=== PATIENT | male | born 1965 | race Caucasian/White ===

== ENCOUNTER 2017-03-16 11:23 | Inpatient (IN) ==
[2017-03-16] MEDS ORDERED: ZOFRAN IV PRN (12:24)
[2017-03-16] MEDS ORDERED: PROTONIX IV SCH (12:30)
[2017-03-16] MEDS ORDERED: LEVAQUIN 500 MG/D5W 500 MG/100 ML IVPB IV SCH (12:30)
[2017-03-16] MEDS ORDERED: SODIUM CHLORIDE 0.9% INJ SCH (12:30)
[2017-03-16] MEDS ORDERED: NS 1,000 ML IV SCH (12:30)
--- NOTE | 2017-03-16 13:03 | HISTORY AND PHYSICAL ---
CHIEF COMPLAINT: Right upper quadrant pain for the last 10 days. HISTORY OF PRESENT ILLNESS: This is a 51-year-old, pleasant white gentleman, who came to my office yesterday as a followup from the ER. He has a right upper quadrant pain, nausea and vomiting. He has lost 10 pounds. He had been seen by Dr. Johnson in the ER. Ultrasound was negative. CT of the abdomen and pelvis was negative. He continues to have nausea related to eating food. He had a HIDA scan done at [facility]. It showed a nonvisualization of the gallbladder even after 2 hours. Last night, he had nausea and upper abdominal pain. As a result, he has been hospitalized for acalculous cholecystitis. Dr. Quach have been consulted. He has been scheduled for gallbladder surgery. PAST MEDICAL HISTORY: 1. Type 2 diabetes. 2. Hypertension. 3. Sleep apnea. 4. Metabolic syndrome. PAST SURGICAL HISTORY: Tonsillectomy. MEDICINES: Metformin 1000 mg p.o. b.i.d. and vitamin B12 1000 mcg daily. ALLERGIES: Not known. SOCIAL HISTORY: He is . 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 No smoking. No drug abuse. No alcohol. FAMILY HISTORY: Mom is healthy at 69. Father is a 73-year-old, has had testicular cancer, Guillain-Sandia syndrome, and hypertension. HEALTH MAINTENANCE: Last prostate and PSA exam January 2017. REVIEW OF SYSTEMS: HEENT: No headache. No vision problem. No earache. No sore throat. Neck: No goiter. No lymphadenopathy. No bruit. Cardiopulmonary: No chest pain, shortness of breath, PND, orthopnea. GI: Nausea. Right upper quadrant pain. Weight loss. No altered bowel habits. No bleeding per rectum. : No history of hesitancy, frequency, dysuria or hematuria. Extremities: No swelling of legs. No joint pain. Neurologic: Exam is nonfocal. PHYSICAL EXAMINATION: VITAL SIGNS: Stable. Afebrile. BMI 29. Weight 230 pounds. HEENT: Atraumatic, normocephalic. Pupils equal, react to light. TMs are normal. Nose and throat within normal limits. NECK: Supple. No lymphadenopathy. No goiter. CHEST: Clear to auscultation. HEART: Sounds are regular. ABDOMEN: Belly is soft. Tender in the right upper quadrant area. No signs of peritonitis. No masses palpable. RECTAL: Deferred. EXTREMITIES: No peripheral edema, cyanosis, clubbing. NEUROLOGIC: No obvious focal deficits noted. INVESTIGATIONS: On 03/09/2017 at [facility], CBC is normal, PT/INR is normal, SMA 7 is normal except glucose 124. ALT is slightly high. Triglycerides 131, cholesterol 158, and cardiac enzymes were normal. Ultrasound of the abdomen is negative. Abdominal CT scan, slight thickening of the gallbladder wall. No gallstones. Nonspecific nodular density in the right middle lobe anteriorly. EKG: Normal sinus. Nothing acute. HIDA scan is abnormal. Nonvisualization of gallbladder even after 2 hours. ASSESSMENT: A 51-year-old white gentleman, admitted to the hospital with symptomatic gallbladder disease due to acalculous cholecystitis. Positive HIDA scan, very symptomatic PLAN: IV fluids, IV Zofran, IV Levaquin, IV Protonix. Consult with Dr. Quach for laparoscopic cholecystectomy this afternoon and we will reconcile home medicines postoperatively. We will follow up. cc: Jose Rmaon Gamino MD
[2017-03-16 14:41] LABS: MANUAL DIFF NEEDED? NO
[2017-03-16 14:43] LABS: BASO% 0.2 % (0.0-0.8); EOS# 0.13 X1000 (0.0-0.7); EOS% 2.5 % (0.0-10.0); HEMATOCRIT 46.6 % (42.0-52.0); HEMOGLOBIN 15.8 g/dL (14.0-18.0); LYMPH# 1.75 X1000 (1.2-3.4); LYMPH% 33.7 % (20.5-51.1); MCH 30.9 PG (27-31); MCHC 33.9 g/dL (33-37); MONO# 0.55 X1000 (0.11-0.59); MONO% 10.6 % (1.7-9.3); MPV 9.6 FL (7.4-10.4); PLT 221 X1000 (130-400); RBC 5.12 XMIL (4.7-6.1)
[2017-03-16 15:02] LABS: AGAP 12; ALBUMIN 4.1 g/dL (3.5-5.0); ALKALINE PHOSPHATASE 74 U/L (32-122); AMYLASE 28 U/L (20-200); BUN 11 mg/dL (8-22); CALCIUM 9.1 mg/dL (8.8-10.2); CHLORIDE 102 mmol/L (98-107); COSMO 276; GOT 30 U/L (10-34); GPT 56 U/L (10-44); SODIUM 138 mmol/L (136-145); TCO2 24 mmol/L (25-35); TOTAL BILIRUBIN 0.67 mg/dL (0.20-1.00); TOTAL PROTEIN 7.2 g/dL (6.3-8.3)
--- NOTE | 2017-03-16 15:32 | EKG Report ---
Test Performed on : 03/16/2017 2:59:12 PM Test Reason : cholecystitis Blood Pressure : / mmHG Vent. Rate : 074 BPM Atrial Rate : 074 BPM P-R Int : 172 ms QRS Dur : 086 ms QT Int : 372 ms P-R-T Axes : 042 -11 020 degrees QTc Int : 412 ms Normal sinus rhythm. Minimal voltage criteria for LVH, may be normal variant Borderline ECG When compared with ECG of 09-MAR-2017 10:07, No significant change was found Confirmed by Jaron Johnson MD ([id number]) on 03/16/2017 3:33:31 PM
[2017-03-16] MEDS ORDERED: TYLENOL PO ONE (16:25)
[2017-03-16] MEDS ORDERED: MARCAINE 0.25% PF/EPI 1:200,000 ONE (17:24)
[2017-03-16] MEDS ORDERED: LR 1,000 ML ONE (17:24)
[2017-03-16] MEDS ORDERED: SODIUM CHLORIDE 0.9% ONE (17:24)
[2017-03-16 18:22] LABS: URINE MICRO REVIEW NEEDED? NO; URINE SOURCE VOIDED
[2017-03-16 18:26] LABS: BILIRUBIN URINE NEGATIVE (NEGATIVE); BLOOD URINE NEGATIVE (NEGATIVE); COLOR YELLOW; GLUCOSE URINE NEGATIVE (NEGATIVE); LEUKOCYTES URINE NEGATIVE (NEGATIVE); NITRITE URINE NEGATIVE (NEGATIVE); PROTEIN URINE TRACE mg/dL (NEGATIVE); SP GRAVITY URINE 1.027; TURBIDITY URINE CLEAR (CLEAR); UROBILINOGEN URINE NORMAL (NORMAL)
[2017-03-16 18:27] LABS: UR EPITHELIAL CELLS <10 /HPF (<10); URINE BACTERIA NEGATIVE /HPF; URINE RBC <10 /HPF (<10); URINE WBC <10 /HPF (<10)
[2017-03-16] MEDS ORDERED: FENTANYL ONE (19:22)
[2017-03-16] MEDS ORDERED: NORCO-10 PO PRN (19:41)
[2017-03-16] MEDS ORDERED: TYLENOL PO PRN (19:42)
[2017-03-16] MEDS ORDERED: TYLENOL PR PRN (19:43)
[2017-03-16] MEDS ORDERED: DIPRIVAN 1% ONE (19:50)
[2017-03-16] MEDS: MORPHINE IV PRN (19:56)
[2017-03-16] MEDS: 1/2 NS 1,000 ML IV SCH (20:19)
--- NOTE | 2017-03-16 20:27 | OPERATIVE NOTE ---
PROCEDURE DATE: 03/16/2017 PREOPERATIVE DIAGNOSIS: Acute and chronic cholecystitis with a 0% HIDA scan. PROCEDURE: Laparoscopic cholecystectomy. DESCRIPTION OF PROCEDURE: The patient was brought to the operating room. After satisfactory induction of IV and endotracheal anesthesia, athrombic TEDs were placed. His abdomen was broadly prepped and draped in the appropriate manner for laparoscopy. Initially, the infraumbilical area was infiltrated with 0.25% Marcaine with epinephrine. Dissection was taken sharply down through skin and subcutaneous tissue. Fascia was tacked with 0 Surgilon and incised. Under direct visualization, a Gela trocar was placed. The abdomen was insufflated to 3.5 L of carbon dioxide. Again, after infiltration with Marcaine and epinephrine, one 10 and two 5 mm trocars were placed across the right epigastrium. The patient was repositioned, the gallbladder was seen to be involved in a dense phlegmon of omentum indicative of acute and chronic cholecystitis. The omentum was peeled down. The gallbladder was grasped and retracted superiorly. Cultures of the crank case fluid coming from the gallbladder were sent for routine studies. The hilar structures were dissected. Attempted cystic duct cholangiogram was unsuccessful secondary to the small size of the duct. The duct and artery were subsequently doubly clipped and divided and the gallbladder was dissected from the liver bed with the use of the monopolar scissors. It was subsequently freed up, placed in an EndoCatch bag and removed. Reinspection of the liver bed revealed small bleeding points that were controlled by electrocautery or Surgicel gauze. The subhepatic and subphrenic spaces were subsequently aspirated free of the small amount of bile and blood. All trocars were removed after abdominal deflation. The subumbilical incision underwent fascial closures of 0 Surgilon. All skin incisions were closed with subcuticular 4-0 Vicryl. Steri-Strips, Telfa, and OpSite were applied. The patient was awakened and extubated in the operating room and transferred to recovery. ESTIMATED BLOOD LOSS: Was about 20-30 mL. cc: MD Jose Ramon Servin MD
[2017-03-17] MEDS: MORPHINE IV PRN ×3 (02:00→04:58)
[2017-03-17 08:12] LABS: MANUAL DIFF NEEDED? NO
[2017-03-17 08:13] LABS: BASO% 0.1 % (0.0-0.8); HEMATOCRIT 44.2 % (42.0-52.0); HEMOGLOBIN 15.3 g/dL (14.0-18.0); LYMPH# 1.01 X1000 (1.2-3.4); LYMPH% 14.8 % (20.5-51.1); MCH 30.9 PG (27-31); MCHC 34.6 g/dL (33-37); MCV 89.3 FL (81-99); MONO% 5.9 % (1.7-9.3); MPV 9.3 FL (7.4-10.4); NEUT% 79.2 % (42.2-75.2); PLT 230 X1000 (130-400); RBC 4.95 XMIL (4.7-6.1)
[2017-03-17 08:31] LABS: AGAP 14; ALBUMIN 3.9 g/dL (3.5-5.0); ALKALINE PHOSPHATASE 70 U/L (32-122); BUN 9 mg/dL (8-22); CALCIUM 8.7 mg/dL (8.8-10.2); CHLORIDE 101 mmol/L (98-107); COSMO 273; GOT 40 U/L (10-34); GPT 58 U/L (10-44); POTASSIUM 4.4 mmol/L (3.5-5.1); SODIUM 136 mmol/L (136-145); TCO2 21 mmol/L (25-35); TOTAL BILIRUBIN 0.77 mg/dL (0.20-1.00); TOTAL PROTEIN 7.3 g/dL (6.3-8.3)
[2017-03-17] MEDS: 1/2 NS 1,000 ML IV SCH (09:24)
[2017-03-17 11:14] VITALS: BP 113/72
--- NOTE | 2017-03-17 15:24 | PROGRESS NOTE ---
DATE: 03/17/2017 SUBJECTIVE: Patient doing much better. He had operation last evening for laparoscopic cholecystectomy. Has done well. OBJECTIVE: Vital signs: Afebrile. Vital signs stable. CV: RRR without murmur. Lungs: CTA. Extremities: No calf tenderness, cords or edema. LABORATORIES: Show white count 6.8, hemoglobin 15.3, platelets 230,000, neutrophils 79, lymphocytes 15. CMP shows minimal elevation LFTs. CO2 21, BUN 9, creatinine 0.9. Blood sugar 146. ASSESSMENT: Postoperative day #1 status post laparoscopic cholecystectomy due to acalculous cholecystitis. PLAN: Patient is to follow up with Dr. Quach in 1 week. DISCHARGE MEDICATIONS: Metformin 1000 mg b.i.d., Zofran 4 mg p.o. t.i.d. to q.i.d. p.r.n. nausea. FOLLOWUP: With Dr. Gamino within 1-2 weeks. cc: MD Jose Ramon Temple MD
[2017-03-19] MEDS ORDERED: NEOSTIGMINE ONE (09:17)
[2017-03-19] MEDS ORDERED: ZOFRAN ONE (09:17)
[2017-03-19] MEDS ORDERED: DECADRON ONE (09:18)
[2017-03-19] MEDS ORDERED: ROBINUL ONE (09:18)
== END 2017-03-17 11:52 | disposition home or self-care (01) ==
LOC: DIRADM 11:23 → 4N 13:17
PROVIDERS: ADMIT Internal Medicine; ATTEND Internal Medicine

== ENCOUNTER 2017-03-21 10:22 | Inpatient (IN) ==
[2017-03-21] MEDS ORDERED: ZOFRAN IV ONE (10:33)
[2017-03-21] MEDS ORDERED: DILAUDID IV ONE (10:33)
[2017-03-21] MEDS ORDERED: NS 1,000 ML ONE (10:47)
[2017-03-21] MEDS ORDERED: NS 1,000 ML IV ONE (11:04)
[2017-03-21 11:10] LABS: MANUAL DIFF NEEDED? NO
[2017-03-21 11:14] LABS: BASO% 0.2 % (0.0-0.8); EOS# 0.13 X1000 (0.0-0.7); EOS% 2.3 % (0.0-10.0); HEMOGLOBIN 16.2 g/dL (14.0-18.0); LYMPH# 1.73 X1000 (1.2-3.4); LYMPH% 30.1 % (20.5-51.1); MCH 30.7 PG (27-31); MCHC 34.5 g/dL (33-37); MCV 89.2 FL (81-99); MONO# 0.49 X1000 (0.11-0.59); MONO% 8.5 % (1.7-9.3); NEUT% 58.9 % (42.2-75.2); PLT 239 X1000 (130-400); RBC 5.27 XMIL (4.7-6.1)
[2017-03-21 11:30] LABS: AGAP 14; ALBUMIN 4.2 g/dL (3.5-5.0); ALKALINE PHOSPHATASE 84 U/L (32-122); AMYLASE 26 U/L (20-200); BUN 9 mg/dL (8-22); CALCIUM 9.3 mg/dL (8.8-10.2); CHLORIDE 98 mmol/L (98-107); CK PROFILE 50 U/L (24-204); COSMO 274; GOT 32 U/L (10-34); GPT 52 U/L (10-44); POTASSIUM 4.3 mmol/L (3.5-5.1); SODIUM 136 mmol/L (136-145); TCO2 24 mmol/L (25-35); TOTAL BILIRUBIN 0.81 mg/dL (0.20-1.00); TOTAL PROTEIN 7.9 g/dL (6.3-8.3)
--- NOTE | 2017-03-21 11:38 | Diag Imaging Result Doc PS360 ---
EXAM: CT ABD/PELVIS W/ IV CONT ONLY HISTORY: s/p cholecystectomy TECHNIQUE: CT of the abdomen with intravenous contrast and dose reduction (clarity) COMMENT: There is atelectasis in both lower lobes which was not present on 03/09/2017. There is surgical packing in the gallbladder fossa status post cholecystectomy which has occurred since the previous study. There is no evidence of free fluid in the abdomen. The kidneys adrenal glands spleen and pancreas are stable in appearance. There is no evidence of bowel obstruction. Postsurgical changes are seen adjacent to the umbilicus. CT of the pelvis with intravenous contrast: There is diverticulosis in the sigmoid colon. There is no evidence of appendicitis. There is a small amount of fluid in the rectovesical pouch. This has a CT density of over 24 Hounsfield units and is probably blood. The urinary bladder is unremarkable. IMPRESSION: Postsurgical changes status post cholecystectomy. The small amount of fluid in the pelvis is probably also secondary to recent surgery. The findings were discussed with Jose Quach MD at 03/21/2017 11:00 AM. Electronically signed by Cooper Devlin 03/21/2017 11:36 AM
[2017-03-21] MEDS ORDERED: ZOFRAN PO PRN (12:49)
--- NOTE | 2017-03-21 12:55 | EKG Report ---
Test Performed on : 03/21/2017 10:57:51 AM Test Reason : epigastric pain Blood Pressure : / mmHG Vent. Rate : 082 BPM Atrial Rate : 082 BPM P-R Int : 164 ms QRS Dur : 078 ms QT Int : 346 ms P-R-T Axes : 044 -14 014 degrees QTc Int : 404 ms Normal sinus rhythm. Normal ECG When compared with ECG of 16-MAR-2017 14:59, No significant change was found Unconfirmed Result
[2017-03-21] MEDS: 1/2 NS 1,000 ML IV SCH ×2 (13:15→22:12)
[2017-03-21] MEDS: LEVAQUIN 500 MG/D5W 500 MG/100 ML IVPB IV SCH (13:16)
[2017-03-21] MEDS: DILAUDID IV PRN ×4 (13:17→22:07)
[2017-03-21] MEDS ORDERED: DULCOLAX PR SCH (14:00)
[2017-03-21] MEDS: FLEET ENEMA PR SCH ×2 (16:17→22:14)
[2017-03-21] MEDS: FLOMAX PO SCH (22:08)
[2017-03-22] MEDS: TYLENOL PO PRN ×2 (00:33→20:27)
[2017-03-22] MEDS: DILAUDID IV PRN ×8 (01:11→23:58)
[2017-03-22] MEDS: ZOFRAN IV PRN ×2 (06:07→13:50)
[2017-03-22] MEDS: 1/2 NS 1,000 ML IV SCH ×3 (06:08→23:52)
[2017-03-22] MEDS: PRILOSEC PO SCH (06:09)
[2017-03-22 06:27] LABS: MANUAL DIFF NEEDED? NO
[2017-03-22 06:40] LABS: BASO% 0.2 % (0.0-0.8); EOS# 0.09 X1000 (0.0-0.7); EOS% 1.6 % (0.0-10.0); HEMATOCRIT 42.8 % (42.0-52.0); HEMOGLOBIN 14.7 g/dL (14.0-18.0); IMM GRAN# 0.02 X1000 (0.0-0.04); IMM GRAN% 0.3 % (0.0-0.5); LYMPH# 1.67 X1000 (1.2-3.4); LYMPH% 28.8 % (20.5-51.1); MCH 31.1 PG (27-31); MCHC 34.3 g/dL (33-37); MCV 90.7 FL (81-99); MONO# 0.77 X1000 (0.11-0.59); MONO% 13.3 % (1.7-9.3); MPV 9.4 FL (7.4-10.4); NEUT% 55.8 % (42.2-75.2); PLT 229 X1000 (130-400); RBC 4.72 XMIL (4.7-6.1)
[2017-03-22 06:52] LABS: AGAP 14; ALBUMIN 3.5 g/dL (3.5-5.0); ALKALINE PHOSPHATASE 75 U/L (32-122); BUN 8 mg/dL (8-22); CALCIUM 8.7 mg/dL (8.8-10.2); CHLORIDE 98 mmol/L (98-107); COSMO 270; GOT 21 U/L (10-34); GPT 37 U/L (10-44); POTASSIUM 4.1 mmol/L (3.5-5.1); SODIUM 135 mmol/L (136-145); TCO2 23 mmol/L (25-35); TOTAL BILIRUBIN 1.21 mg/dL (0.20-1.00); TOTAL PROTEIN 7.3 g/dL (6.3-8.3)
--- NOTE | 2017-03-22 07:38 | Diag Imaging Result Doc PS360 ---
EXAM: CHEST-2 VIEWS - 03/22/2017 HISTORY: ABD PAIN TECHNIQUE: Chest two views COMPARISON: None. FINDINGS: Heart size is normal. There is elevation of the right hemidiaphragm. There is mild subsegmental atelectasis at the lung bases. The lungs otherwise appear clear. IMPRESSION: Elevation right hemidiaphragm. Mild basilar subsegmental atelectasis. Electronically signed by Uday Porras 03/22/2017 7:35 AM
[2017-03-22] MEDS ORDERED: GOLYTELY PO ONE (07:40)
--- NOTE | 2017-03-22 07:40 | Diag Imaging Result Doc PS360 ---
EXAM: ABDOMEN FLAT/UPRIGHT - 03/22/2017 HISTORY: ABD. PAIN TECHNIQUE: Supine and upright abdomen COMPARISON: None. FINDINGS: The bowel gas pattern appears nonspecific and nonobstructive. There is scattered small bowel gas visible but there is no substantial gaseous small bowel distention identified. There is some retained fecal debris in the colon. There are surgical clips at the right upper quadrant. IMPRESSION: Nonspecific bowel gas pattern. Electronically signed by Uday Porras 03/22/2017 7:37 AM
[2017-03-22] MEDS: LEVAQUIN 500 MG/D5W 500 MG/100 ML IVPB IV SCH (13:51)
[2017-03-22] MEDS ORDERED: SODIUM CHLORIDE 0.9% INJ PRN (14:10)
[2017-03-22] MEDS: PHENERGAN IV PRN ×2 (15:29→23:57)
[2017-03-22] MEDS ORDERED: BENADRYL IV PRN (19:00)
[2017-03-22] MEDS: HUMULIN R SUBQ SCH (20:03)
[2017-03-22] MEDS: FLOMAX PO SCH (20:27)
--- NOTE | 2017-03-22 22:43 | CONSULTATION ---
DATE OF CONSULTATION: 03/22/2017 HISTORY OF PRESENT ILLNESS: I was asked to see this pleasant, 51-year-old white gentleman recently discharged from the hospital on Sunday after laparoscopic cholecystectomy for acalculous cholecystitis with ejection fraction 0% and HIDA scan. Patient was doing very well on Sunday, Sunday and Sunday. He started having right-sided abdominal pain. He came to the emergency room yesterday. The patient was evaluated and admitted to the hospital. He was extremely tender on the right side suspicious for biliary leak. Laboratory data was unremarkable. Patient was found to have constipation. CT scan of the abdomen and pelvis shows some fluid in the pelvis. Blood workup was essentially unremarkable. He was getting Dilaudid and also eating. The pain is a 7/10. He is tender on the right side. He denies any chest pain, shortness of breath. REVIEW OF SYSTEMS: HEENT: No headache. No vision problem. No earache. No sore throat. Neck: No goiter. No lymphadenopathy. No bruit. Cardiopulmonary: No chest pain, cough shortness of breath, PND, orthopnea. Gastrointestinal: Right-sided abdominal pain, not passing gas, a little bit of constipation, no bleeding per rectum. Genitourinary: No history of hesitancy, frequency. Extremities: No swelling of legs. No joint pain. Neurologic: No obvious focal symptoms or weakness. PAST MEDICAL HISTORY: Type 2 diabetes, hypertension, sleep apnea, metabolic syndrome. PAST SURGICAL HISTORY: Tonsillectomy. MEDICATIONS: Metformin, vitamin B12. MEDICATIONS CURRENTLY IN THE HOSPITAL: Dilaudid, Levaquin, Prilosec, Zofran, IV fluids, Flomax, GoLYTELY. ALLERGIES: Not known. 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 No smoking. No alcohol. No drug abuse. FAMILY HISTORY: Mom is healthy at 69. Father is 73 hypertension. REVIEW OF SYSTEMS: As above. PHYSICAL EXAMINATION: Vital Signs: Low-grade fever, tachycardic. HEENT: Atraumatic, normocephalic. Pupils equal, reactive to light. General: No edema. No cyanosis. No jaundice. Neck: Supple. No lymphadenopathy. No goiter. Chest: Decreased breath sounds in the right base. Heart: Sounds are regular. Abdomen: Belly is soft and tender on the right side but no signs of peritonitis noted. Extremities: No peripheral edema. No cyanosis. Neurologic: No obvious neurological deficits. INVESTIGATIONS: CBC: White cell count 5.8, hematocrit 42, platelets 229,000. SMA 7 is normal. Glucose 134. Total bilirubin slightly high. LFTs were normal. Cardiac enzymes were normal. Amylase was normal. Chest x-ray: Elevation of right hemidiaphragm. KUB: Constipation. CT scan of the abdomen and pelvis: Postsurgical changes status post cholecystectomy, small amount of fluid in the pelvis. EKG: Normal sinus. Nothing acute. ASSESSMENT AND PLAN: 1. A 51-year-old white gentleman admitted to the hospital after laparoscopic cholecystectomy for acalculous cholecystitis. Findings are suspicious for a biliary leak. Plan for EGD and colonoscopy tomorrow if the symptoms will not improve. Consider GI consultation with Dr. Marroquin. 2. Low-grade fever. Empirically on IV Levaquin. 3. Type 2 diabetes. We will follow up on sliding scale with insulin coverage. 4. Itching due to Dilaudid. We will use Benadryl as needed. 5. Deep venous thrombosis prophylaxis with antithrombotic stockings. 6. Gastrointestinal prophylaxis with IV Protonix. 7. Follow up with workup in the morning. Once again, thank you for the consultation. cc: MD Jose Grande MD MTDD
[2017-03-22] MEDS: FLONASE NAS SCH (23:09)
[2017-03-23] MEDS: HUMULIN R SUBQ SCH ×4 (06:01→21:30)
[2017-03-23] MEDS: DILAUDID IV PRN (06:04)
[2017-03-23] MEDS: 1/2 NS 1,000 ML IV SCH ×2 (06:04→15:51)
[2017-03-23] MEDS: PRILOSEC PO SCH (06:19)
[2017-03-23 06:28] LABS: MANUAL DIFF NEEDED? NO
[2017-03-23 06:32] LABS: BASO% 0.1 % (0.0-0.8); EOS# 0.07 X1000 (0.0-0.7); HEMATOCRIT 41.9 % (42.0-52.0); HEMOGLOBIN 14.7 g/dL (14.0-18.0); LYMPH# 0.94 X1000 (1.2-3.4); LYMPH% 13.9 % (20.5-51.1); MCH 31.6 PG (27-31); MCHC 35.1 g/dL (33-37); MCV 90.1 FL (81-99); MONO% 11.8 % (1.7-9.3); MPV 9.5 FL (7.4-10.4); NEUT% 73.2 % (42.2-75.2); PLT 202 X1000 (130-400); RBC 4.65 XMIL (4.7-6.1)
[2017-03-23 06:39] LABS: INR 1.14; PROTIME 12.1 Seconds (9.2-11.7)
[2017-03-23] MEDS ORDERED: MYLICON DROPS (DOSE) ONE (06:41)
[2017-03-23 06:56] LABS: AGAP 16; ALBUMIN 3.4 g/dL (3.5-5.0); ALKALINE PHOSPHATASE 77 U/L (32-122); BUN 6 mg/dL (8-22); CALCIUM 8.8 mg/dL (8.8-10.2); CHLORIDE 97 mmol/L (98-107); COSMO 274; GOT 15 U/L (10-34); GPT 28 U/L (10-44); POTASSIUM 3.9 mmol/L (3.5-5.1); SODIUM 137 mmol/L (136-145); TCO2 24 mmol/L (25-35); TOTAL BILIRUBIN 1.39 mg/dL (0.20-1.00)
--- NOTE | 2017-03-23 07:28 | CONSULTATION ---
DATE OF CONSULTATION: 03/23/2017 HISTORY AND REASON FOR CONSULTATION: For evaluation of this patient with acute abdominal pain and black stools. HISTORY OF PRESENT ILLNESS: This is a 51-year-old gentleman, who had a calculous cholecystitis. He had been having abdominal pain on and off with some nausea and occasional vomiting for about 6 months. Finally, he went to see Dr. Gamino and an ultrasound did not show any gallstones but a HIDA scan revealed that the ejection fraction was not there at all, 0%; therefore it was deemed that the gallbladder was not functional and he had undergone a cholecystectomy last Sunday. The patient went home the next day and he was doing quite fine. He went to work and prior to getting the pain the previous day; that was Sunday, the patient had a very good bowel movement. He was eating quite well. There was no pain postop. The cholecystectomy was uneventful. However, on Sunday, he woke up with severe pain and then finally in the morning, he came to the emergency room. He was evaluated and was admitted to the hospital. He had a low-grade fever, but the pain was extremely severe on the right upper quadrant. There was some suspicion of bile leak. A CT scan was performed which showed no significant findings. Except for a large amount of stool in the colon. He was constipated. He was given Dilaudid with improvement of his pain. Still pain is present. However, when he was given laxatives to get bowel movements, he passed black stools. Therefore, I was called yesterday evening by Dr. Quach to do esophagogastroduodenoscopy and perhaps a colonoscopy. He received GoLYTELY preparation yesterday and he had multiple bowel movements which were all black in color. The patient continues to have pain and low-grade fever. PAST MEDICAL HISTORY: He has type 2 diabetes mellitus, hypertension, sleep apnea and metabolic syndrome. PAST SURGICAL HISTORY: Tonsillectomy and cholecystectomy last Sunday. ALLERGIES: No known drug allergies. SOCIAL HISTORY: Does not abuse alcohol or tobacco. He lives in [place]. He is with 2 children. FAMILY HISTORY: Father had testicular cancer when he was in his 60s. He has hypertension. Mother is healthy. No GI cancer in the family. He has 1 brother and 1 sister. They are doing okay. GASTROINTESTINAL REVIEW OF SYSTEMS: Appetite is poor. He is able to tolerate some liquid diet. Some nausea present with no vomiting. Has a low grade fever. Abdominal pain is mainly in the upper abdomen. He has been having black stools. In the past, there is no constipation, diarrhea blood in stool or black stools. PHYSICAL EXAMINATION: General: The patient is alert, oriented x3. Vital Signs: The temperature when he came in was 100.3 degrees. Today, it is 98.1 degree., pulse rate is slightly up at 92 per minute, respiratory rate is 16, blood pressure is 140/81. Skin: Warm and dry. Mucous membranes are moist. Neck: Supple. There is no thyromegaly. Cardiac: Both heart sounds are heard. Rhythm is regular. No murmur. Lungs: Clear to percussion and auscultation. Abdomen: Soft there is tenderness in the right upper quadrant. No masses felt. Bowel sounds are slightly hyperactive. Extremities: Free of any edema. LABORATORY/DIAGNOSTIC DATA: The WBC count on entry was 5.80. Today it is 6.76, hemoglobin 14.7, hematocrit 41.9, the platelet count is 202,000. The pro time is 12.1, INR 1.14, sodium 135, potassium 4.1, chloride is 98, CO2 is 23, BUN is 8, creatinine 0.7, glucose 134, total bilirubin is 1.21, AST is 21, ALT is 37. The bilirubin was actually 0.81 on entry. Alkaline phosphatase is 75. CT scan on 03/21/2017 showed diverticulosis in the sigmoid colon. There is no evidence of appendicitis. Small amount of fluid in the rectovesical pouch. The density is compatible with probable blood. Postsurgical changes are present. IMPRESSION: 1. Severe upper abdominal pain. 2. Black stools. RECOMMENDATION: Esophagogastroduodenoscopy and colonoscopy. I have explained the risk of esophagogastroduodenoscopy and colonoscopy with benefit and risks, in particular, risk of perforation, hemorrhage, and infection. Patient agreed for it. We will proceed with it. I also explained to the patient about conscious sedation. Patient agreed for conscious sedation and monitored anesthesia care. cc: MD Jose Ramon Servin MD
[2017-03-23] MEDS ORDERED: VERSED ONE (07:41)
[2017-03-23] MEDS ORDERED: FENTANYL ONE (07:41)
[2017-03-23] MEDS ORDERED: DIPRIVAN 1% ONE (07:42)
--- NOTE | 2017-03-23 08:13 | OPERATIVE NOTE ---
PROCEDURE DATE: 03/23/2017 HISTORY AND REASON FOR PROCEDURE: This patient was admitted with acute right upper quadrant pain. He also had black stools and severe constipation. The patient was given GoLYTELY. At that time, he was passing black stools. His hemoglobin and hematocrit actually did not drop with passing this black stool. Medications were all given by Anesthesiologist. Patient was monitored before, during, and after the procedure by them and his condition remains stable. Photos taken from the antrum. SPECIMEN: From the antrum for ruling out Helicobacter pylori infection. PROCEDURE: The patient was kept in the left lateral decubitus position. Bite block applied. Premedication was given. The Olympus video scope was introduced under direct vision of the throat and advanced to the esophagus. The esophagus was insufflated. The mucosa in the upper esophagus, mid esophagus, and lower esophagus appeared normal. The scope was advanced into the stomach without any difficulty. There was bilious debris present throughout the stomach. A moderate amount of bilious fluid was present in the body of the stomach, the cardia and also the antrum. I passed the scope immediately down to the antrum. The antrum had some thickening of the mucosa with a few erosions present. Biopsy x2 taken from this area to rule out Helicobacter pylori infection. The scope was advanced to the duodenal bulb. The duodenal bulb and second part of the duodenum appeared normal. Plenty of bile was present in that area. The scope was withdrawn. The stomach, retroflexed. The angularis, lesser curvature, greater curvature were all examined carefully. There were no lesions present. Bile was removed from the patient's stomach and scope was removed from the patient. There was no evidence of upper GI bleeding. There was no evidence of any perforated peptic ulcer. Dr. Quach was present at the time I did the examination. IMPRESSION: Bile reflux gastritis. RECOMMENDATION: Patient to see me in the office in about 2 weeks' time. I will advance his diet to full liquid diet after the colonoscopy. cc: MD Pablo Servin MD
--- NOTE | 2017-03-23 08:14 | OPERATIVE NOTE ---
PROCEDURE DATE: 03/23/2017 PROCEDURE: Colonoscopy. He was immediately turned over and a colonoscopy was performed. Distal point reached to the cecum. Photos taken from the sigmoid colon and cecum. SPECIMENS: From the rectum x2. PROCEDURE IN DETAIL: The patient was kept in the left lateral decubitus position. Rectal examination was performed. The anal canal lubricated. The Olympus video scope was introduced in the rectum advanced to the cecum. The patient tolerated the procedure well and bowel preparation was fairly good. There was some amount of stool present in the right colon which was washed off with the scope and removed and an adequate view was possible all over. The cecum also was washed off of all the stool. FINDINGS: The rectum had multiple erosions present. These were discrete erosions. This might be probably secondary to him being extremely constipated and stool remaining in the rectum for longer periods of time. However, I did a biopsy to rule out the possibility of any proctitis. The sigmoid had multiple diverticula present. The descending colon had a few diverticula. The splenic flexure was normal. Transverse colon was normal. The hepatic flexure was normal. Ascending colon was normal. The cecum was identified by the presence of ileocecal valve and appendiceal orifice, which was all normal. Air was taken out from the patient's colon and scope was removed from the patient. IMPRESSION: 1. Erosions in the rectum, rule out proctitis. 2. Diverticulosis of the sigmoid and descending colon. RECOMMENDATION: High-fiber diet in addition to his diabetic diet. The patient will be started on a full liquid diet in the hospital. He could be discharged when the pain is improved. DISCUSSION: This patient was admitted with severe right upper quadrant pain. The CT scan did not reveal any perforated peptic ulcer. There was no evidence of any serious bile leak; however, with this was based on the normal liver function tests. However, CT scan revealed that he has fluid in his pelvis with a density of which is compatible to blood. Today, his bilirubin has gone up. When he came, his bilirubin was normal. His total bilirubin is 1.21. This is secondary to breakdown of that blood and that confirms the diagnosis that the patient might have had a little bit of bleeding in the right upper quadrant which resulted in an acute peritoneal reaction causing him this bad pain. In time, he will definitely improve. Only antiinflammatory and pain medications are needed for him. I discussed this situation with Dr. Quach. -5 cc: MD Jose Salazar MD
[2017-03-23] MEDS ORDERED: NS 1,000 ML ONE (08:41)
[2017-03-23] MEDS ORDERED: XYLOCAINE-MPF 2% ONE (08:41)
[2017-03-23] MEDS: FLONASE NAS SCH (08:47)
[2017-03-23] MEDS: TYLENOL PO PRN (12:42)
[2017-03-23] MEDS ORDERED: DULCOLAX PR PRN (13:45)
[2017-03-23] MEDS: LEVAQUIN 500 MG/D5W 500 MG/100 ML IVPB IV SCH (15:42)
[2017-03-23] MEDS: NORCO-10 PO PRN ×2 (18:12→21:47)
--- NOTE | 2017-03-23 19:11 | PROGRESS NOTE ---
DATE: 03/23/2017 SUBJECTIVE: Patient had EGD colonoscopy by Dr. Curiel. Complains of pain in the right upper quadrant every time he eats. I did review the x-rays with a CT. Did not show any evidence of bile leak and still symptomatic. REVIEW OF SYSTEMS: None reported. OBJECTIVE: Vitals: On exam afebrile, vitals are stable. HEENT: Within normal limits. Neck: Supple. Chest: Clear to auscultation. Heart: Sounds are regular. Abdomen: Belly is soft. Tender on the right side. No signs of peritonitis. Neurologic: Nonfocal. INVESTIGATIONS: White cell count 6.7, hematocrit 42, platelets 202. PT 12. INR 1.1. SMA-7 is normal. Total bilirubin slightly elevated 1.39. LFTs were normal. Cardiac enzymes were negative. Amylase was normal. ASSESSMENT AND PLAN: 1. Status post cholecystectomy a week ago. Complains of right upper quadrant pain. Status post EGD, colonoscopy negative, by Dr. Curiel and symptomatic. Rule out slow leak and discussed with the family. If the symptoms continue to persist, repeat CT of the abdomen and pelvis or HIDA scan for the biliary leak. 2. Postoperative splinting on the right side with elevation of hemidiaphragm. Incentive spirometry. 3. Deep venous thrombosis prophylaxis with antithrombotic stockings. 4. Diabetes follow up on sliding scale with insulin coverage and will follow up. Discussed with the family. LEVEL OF DOCUMENTATION: 25 minutes. cc: MD Jose Grande MD
[2017-03-23] MEDS: FLOMAX PO SCH (21:31)
[2017-03-24] MEDS: 1/2 NS 1,000 ML IV SCH (01:35)
[2017-03-24] MEDS: FLONASE NAS SCH (05:55)
[2017-03-24] MEDS: PRILOSEC PO SCH ×2 (05:55→06:00)
[2017-03-24] MEDS: HUMULIN R SUBQ SCH (06:00)
[2017-03-24 08:44] VITALS: BP 131/82
--- NOTE | 2017-03-24 10:27 | PROGRESS NOTE ---
DATE: 03/24/2017 SUBJECTIVE: The patient said about 3 a.m. this morning, his pain stopped. He says he still feels very weak and tired, but he has had no more nausea, diaphoresis or right upper quadrant abdominal pain. OBJECTIVE: Blood pressure is 131/82, respirations 17, and unlabored, pulse is 93 and regular, temperature is 98.1 degrees Fahrenheit. PHYSICAL EXAMINATION: HEENT: His is normocephalic. EOMs intact. PERRLA. Throat clear. Lungs: Clear to auscultation and percussion without rhonchi, rales, or wheezes. Heart: Regular rate and rhythm without murmurs, gallops, or friction rubs. Abdomen: Soft. Active bowel sounds. No organomegaly or tenderness at this time. Neurological Exam: Intact grossly. ASSESSMENT: Abdominal pain, right upper quadrant, status post laparoscopic cholecystectomy with the question of a bile leak. This was not seen on initial CT scan. If his pain returns, may consider a HIDA scan to see if there could be a leak. Otherwise we will give him time to recover from this, as he still feels extremely weak and he has only been without pain for a few hours. cc: MD Jose Forman Jr, MD
--- NOTE | 2017-04-10 10:58 | HISTORY AND PHYSICAL ---
DIAGNOSIS: Abdominal pain, status post cholecystectomy. HISTORY OF PRESENT ILLNESS: The patient is a 51-year-old, white male, 5 days status post cholecystectomy, who initially did well, but suddenly developed abrupt onset of severe pain in his right upper quadrant. The patient is diaphoretic and feeling acutely ill in the emergency room. PAST HISTORY: Otherwise negative. He is a patient of Dr. Parker, who referred him to me last week for acute and chronic cholecystitis. His HIDA scan reveals 0% ejection fraction. He underwent an uneventful cholecystectomy on late Sunday afternoon and was kept and was feeling well and on Sunday morning was allowed home. PHYSICAL EXAMINATION: GENERAL: Physical exam reveals a large, heavy-set white male in moderate discomfort. HEAD AND NECK EXAM: He is normocephalic, atraumatic. Pupils equal and reactive. Ear, nose, and throat is negative. ABDOMEN: Protuberant, with healing's scars tenderness in the right epigastrium. : Negative. NEUROLOGIC: Neurologically intact. IMPRESSION: Possible bile leak status post cholecystectomy. PLAN: Admission observation. CT scan of the abdomen, possible GI consultation. cc: Jose Quach MD
--- NOTE | 2017-04-10 14:39 | DISCHARGE SUMMARY ---
ADMISSION DATE: 03/21/2017 DISCHARGE DATE: 03/24/2017 DIAGNOSIS: Abrupt onset of abdominal pain status post cholecystectomy. HISTORY OF PRESENT ILLNESS: The patient is a 51-year-old, white male who was admitted 03/21, 5 days status post cholecystectomy with abrupt onset of severe abdominal pain. CT scan revealed no evidence of bile leak. His laboratory work was normal; however, he continued to have pain. The patient was significantly constipated. It was relieved with some bowel cleansing. GI was subsequently consulted with Dr. Curiel when the patient had a large heme positive bowel movement. Dr. Curiel subsequently performed an EGD and a colonoscopy on the patient were both essentially normal. He did feel better after all this bowel cleansing, etc. and was subsequently allowed home on 03/24 to be seen in the office in 1 week's time. cc: Jose Quach MD
== END 2017-03-24 10:15 | disposition home or self-care (01) ==
LOC: ED 10:22 → 4N 10:22 → OBSVTOIN 10:23 → 4N 13:15
PROVIDERS: ADMIT Surgery; ATTEND Surgery